=== PATIENT | female | born 1995 | race Caucasian/White ===

== ENCOUNTER 2018-02-02 02:16 | Emergency (ER) | payer SELFPAY ==
[~2018-02-02] VITALS: Ht 162.6 cm; Wt 59.0 kg
[2018-02-02] MEDS ORDERED: SODIUM CHLORIDE 0.9% 1,000 ML IV ONE (02:45)
[2018-02-02 03:53] LABS: BASOPHILS % 0.7 % (0.0-2.0); EOSINOPHILS % 0.2 % (0.0-5.0); HEMATOCRIT. 38.5 % (36.0-48.0); HEMOGLOBIN. 13.1 g/dL (12.0-16.0); LYMPHOCYTES % 22.4 % (20.0-50.0); MEAN CORPUSCULAR VOLUME 91.1 fL (81.0-99.0); MEAN PLATELET VOLUME 9.3 fl (7.4-10.4); NEUTROPHILS % 72.7 % (40.0-76.0); PLATELET 223 x1000/uL (130-400); RED BLOOD CELL COUNT 4.23 mill/uL (4.2-5.4); RED CELL DISTRIBUTION WIDTH 13.2 % (11.6-14.6)
[2018-02-02 03:58] LABS: CHLORIDE 106 mEq/L (98-107)
[2018-02-02 04:01] LABS: ETHANOL BLOOD 191 mg/dL
[2018-02-02 06:05] VITALS: BP 115/68
== END 2018-02-02 07:13 | disposition home or self-care (01) ==
LOC: ER 02:54 → EDBD 02:54 → ER 07:13
DX: F10.129 Alcohol abuse with intoxication, unspecified (principal); Y90.6 Blood alcohol level of 120-199 mg/100 ml
CPT/HCPCS: 36415; 80048; 85025; 96360; 99284; G0482; J7030; Z7610

== ENCOUNTER 2018-09-11 12:54 | Emergency (ER) | payer MEDICAID, OTHER ==
[~2018-09-11] VITALS: Ht 162.6 cm; Wt 61.0 kg
[2018-09-11] MEDS ORDERED: KETOROLAC 30MG/ML VIAL IM ONE (14:45)
[2018-09-11] MEDS ORDERED: DEXAMETHASONE 10 MG/ML VIAL IM ONE (14:45)
[2018-09-11 15:05] VITALS: BP 128/76
== END 2018-09-11 15:06 | disposition home or self-care (01) ==
LOC: ER 12:54
DX: J02.9 Acute pharyngitis, unspecified (principal)
CPT/HCPCS: 81025; 96372; 99283; J1100; J1885

== ENCOUNTER 2020-12-23 17:03 | Inpatient (IN) | payer MEDICAID ==
[~2020-12-23] VITALS: Ht 162.6 cm; Wt 85.3 kg
[2020-12-23] MEDS ORDERED: LABETALOL HCL 200MG TABLET PO NR (18:15)
[2020-12-23] MEDS: LACTATED RINGERS 1,000 ML IV SCH (18:30)
[2020-12-23] MEDS ORDERED: MAGNESIUM 20 G PREMIX (L & D) 500 ML IV SCH (19:15)
[2020-12-23] MEDS ORDERED: LABETALOL HCL 5MG/ML VIAL 20ML IV PRN ×5 (19:15→19:30)
[2020-12-23] MEDS ORDERED: MAGNESIUM 4 G PREMIX 100 ML IV NR (19:15)
[2020-12-23] MEDS ORDERED: RHO(D) IMMUNE GLOBULIN 300 MCG/SYR IM NR (19:30)
[2020-12-23] MEDS ORDERED: HYDRALAZINE 20MG/ML VIAL IV PRN (19:30)
[2020-12-23] MEDS ORDERED: DEXT 5%/LACTATED RINGERS 1,000 ML IV SCH (19:30)
[2020-12-23] MEDS ORDERED: MAGNESIUM 20 G PREMIX (L & D) 500 ML IV ONE (19:31)
[2020-12-23] MEDS: MAGNESIUM 20 G PREMIX (L & D) 500 ML IV SCH (19:50)
[2020-12-23] MEDS: BETAMETHASONE ACET/BETAMET 30 MG/5 ML VIAL IM SCH (19:53)
[2020-12-23 19:56] LABS: CHLORIDE 111 mEq/L (98-107)
[2020-12-23 19:59] LABS: BASOPHILS % 0.8 % (0.0-2.0); HEMATOCRIT. 34.9 % (36.0-48.0); HEMOGLOBIN. 12.2 g/dL (12.0-16.0); LYMPHOCYTES % 29.5 % (20.0-50.0); MEAN CORPUSCULAR HEMOGLOBIN 30.6 pg (28.0-32.0); MEAN CORPUSCULAR VOLUME 87.6 fL (81.0-99.0); MEAN PLATELET VOLUME 11.6 fl (7.4-10.4); MONOCYTES % 6.6 % (2.0-8.0); NEUTROPHILS % 62.1 % (40.0-76.0); PLATELET 206 x1000/uL (130-400); RED BLOOD CELL COUNT 3.98 mill/uL (4.2-5.4); RED CELL DISTRIBUTION WIDTH 13.3 % (11.6-14.6)
[2020-12-23 20:00] LABS: CLARITY URINE CLEAR (CLEAR); COLOR URINE DARK YELLOW (YELLOW); KETONES URINE NEGATIVE (NEGATIVE); LEUKOCYTE ESTERASE URINE TRACE (NEGATIVE); NITRITE URINE NEGATIVE (NEGATIVE); OCCULT BLOOD URINE TRACE (NEGATIVE); PROTEIN URINE 4+ (NEGATIVE); SPECIFIC GRAVITY URINE 1.024 (1.005-1.030); UROBILINOGEN URINE 0.2 E.U./dL (0.2-1.0)
[2020-12-23 20:07] LABS: INR 0.9; PARTIAL THROMBOPLASTIN TIME 25.2 sec (23.4-31.0); PROTHROMBIN TIME 9.7 sec (9.6-11.0)
[2020-12-23 20:47] LABS: *AMPHETAMINES SCREEN URINE NEGATIVE (NEGATIVE); *BARBITURATES SCREEN URINE NEGATIVE (NEGATIVE); *BENZODIAZEPINES SCREEN URINE NEGATIVE (NEGATIVE); *COCAINE SCREEN URINE NEGATIVE (NEGATIVE); CANNABINOID URINE SCREEN NEGATIVE (NEGATIVE); HEPATITIS B SURFACE ANTIGEN NEGATIVE; METHADONE URINE SCREEN NEGATIVE (NEGATIVE); OPIATES URINE SCREEN NEGATIVE (NEGATIVE); PHENCYCLIDINE URINE SCREEN NEGATIVE (NEGATIVE)
[2020-12-23] MEDS ORDERED: BETAMETHASONE ACET/BETAMET 30 MG/5 ML VIAL IM SCH (21:00)
[2020-12-23] MEDS ORDERED: FISH1CAP34 PO (23:40)
[2020-12-23] MEDS ORDERED: PREN-182 PO (23:40)
[2020-12-23] MEDS ORDERED: LABE300T3 PO (23:40)
[2020-12-24] MEDS ORDERED: MAGNESIUM 20 G PREMIX (L & D) 500 ML IV SCH
[2020-12-24] MEDS: ACETAMINOPHEN 325MG TABLET PO PRN ×2 (00:39→05:19)
[2020-12-24 01:09] LABS: BASOPHILS % 0.4 % (0.0-2.0); EOSINOPHILS % 0.3 % (0.0-5.0); HEMATOCRIT. 37.3 % (36.0-48.0); LYMPHOCYTES % 15.7 % (20.0-50.0); MEAN CORPUSCULAR HEMOGLOBIN 30.7 pg (28.0-32.0); MEAN CORPUSCULAR VOLUME 87.9 fL (81.0-99.0); MEAN PLATELET VOLUME 10.8 fl (7.4-10.4); MONOCYTES % 1.9 % (2.0-8.0); NEUTROPHILS % 81.7 % (40.0-76.0); PLATELET 220 x1000/uL (130-400); RED BLOOD CELL COUNT 4.25 mill/uL (4.2-5.4); RED CELL DISTRIBUTION WIDTH 13.3 % (11.6-14.6)
[2020-12-24 01:12] LABS: CHLORIDE 110 mEq/L (98-107)
[2020-12-24 01:17] LABS: CLARITY URINE CLEAR (CLEAR); COLOR URINE YELLOW (YELLOW); KETONES URINE 1+ (NEGATIVE); LEUKOCYTE ESTERASE URINE NEGATIVE (NEGATIVE); NITRITE URINE NEGATIVE (NEGATIVE); OCCULT BLOOD URINE TRACE (NEGATIVE); PH URINE 5.5 (4.5-8.0); PROTEIN URINE 4+ (NEGATIVE); SPECIFIC GRAVITY URINE 1.024 (1.005-1.030); UROBILINOGEN URINE 0.2 E.U./dL (0.2-1.0)
[2020-12-24 01:52] LABS: D-DIMER 1.39 mg/L FEU (<0.50); INR 0.8; PROTHROMBIN TIME 9.1 sec (9.6-11.0)
[2020-12-24] MEDS: MAGNESIUM 20 G PREMIX (L & D) 500 ML IV SCH (06:06)
[2020-12-24] MEDS: LABETALOL HCL 200MG TABLET PO SCH ×2 (09:37→10:39)
[2020-12-24] MEDS: LACTATED RINGERS 1,000 ML IV SCH ×2 (09:54→21:24)
[2020-12-24] MEDS ORDERED: LABETALOL HCL 200MG TABLET PO SCH ×2 (18:00)
[2020-12-24] MEDS: LABETALOL HCL 100MG TABLET PO SCH (18:32)
[2020-12-24 19:37] LABS: BASOPHILS % 0.6 % (0.0-2.0); HEMATOCRIT. 35.6 % (36.0-48.0); HEMOGLOBIN. 12.2 g/dL (12.0-16.0); LYMPHOCYTES % 22.7 % (20.0-50.0); MEAN CORPUSCULAR HEMOGLOBIN 30.6 pg (28.0-32.0); MEAN CORPUSCULAR VOLUME 89.5 fL (81.0-99.0); MEAN PLATELET VOLUME 11.2 fl (7.4-10.4); MONOCYTES % 6.2 % (2.0-8.0); NEUTROPHILS % 70.5 % (40.0-76.0); PLATELET 240 x1000/uL (130-400); RED BLOOD CELL COUNT 3.98 mill/uL (4.2-5.4); RED CELL DISTRIBUTION WIDTH 13.7 % (11.6-14.6)
[2020-12-24 19:42] LABS: CHLORIDE 106 mEq/L (98-107); CLARITY URINE CLEAR (CLEAR); COLOR URINE YELLOW (YELLOW); KETONES URINE 1+ (NEGATIVE); LEUKOCYTE ESTERASE URINE NEGATIVE (NEGATIVE); NITRITE URINE NEGATIVE (NEGATIVE); OCCULT BLOOD URINE 1+ (NEGATIVE); PROTEIN URINE 3+ (NEGATIVE); UROBILINOGEN URINE 0.2 E.U./dL (0.2-1.0)
[2020-12-24 19:51] LABS: D-DIMER 1.16 mg/L FEU (<0.50); INR 0.8; PARTIAL THROMBOPLASTIN TIME 23.7 sec (23.4-31.0); PROTHROMBIN TIME 9.2 sec (9.6-11.0)
[2020-12-24] MEDS: BETAMETHASONE ACET/BETAMET 30 MG/5 ML VIAL IM SCH (20:12)
[2020-12-25] VITALS (9 sets, daily range): BP systolic 141–196; BP diastolic 89–139
[2020-12-25] MEDS: LABETALOL HCL 100MG TABLET PO SCH ×2 (02:00→10:03)
[2020-12-25] MEDS: MAGNESIUM 20 G PREMIX (L & D) 500 ML IV SCH ×2 (02:16→23:13)
[2020-12-25] MEDS: ACETAMINOPHEN 325MG TABLET PO PRN (02:21)
[2020-12-25] MEDS: LACTATED RINGERS 1,000 ML IV SCH (06:49)
[2020-12-25] MEDS ORDERED: OXYTOCIN 10 UNITS/ML 1ML ONE (12:06)
[2020-12-25] MEDS ORDERED: EPHEDRINE SULFATE 50MG/ML VIAL ONE (12:06)
[2020-12-25] MEDS ORDERED: FENTANYL CITRATE/PF 50MCG/ML 2ML VIAL ONE (12:06)
[2020-12-25] MEDS ORDERED: ONDANSETRON HCL 4MG/2ML INJ ONE ×2 (12:06→12:56)
[2020-12-25] MEDS ORDERED: MORPHINE SULFATE/PF 1MG/ML 10ML AMP ONE (12:06)
[2020-12-25] MEDS ORDERED: CEFAZOLIN SODIUM 1000MG/VIAL ONE ×2 (12:06→12:56)
[2020-12-25] MEDS ORDERED: SODIUM CHLORIDE 0.9% 10ML VIAL ONE (12:08)
[2020-12-25] MEDS ORDERED: GLYCOPYRROLATE 0.2 MG/ML 2ML VIAL ONE (13:10)
[2020-12-25] MEDS ORDERED: KETOROLAC 60MG/2ML VIAL IM ONE (13:28)
[2020-12-25] MEDS ORDERED: DIPHENHYDRAMINE 50MG/ML VIAL ONE (13:28)
[2020-12-25] MEDS ORDERED: NALOXONE HCL 0.4 MG/ML 1ML VIAL IV PRN (13:30)
[2020-12-25] MEDS ORDERED: DIPHENHYDRAMINE 50MG/ML VIAL IV PRN (13:30)
[2020-12-25] MEDS ORDERED: BUTORPHANOL TARTRATE 2 MG/ML VIAL IV PRN (13:30)
[2020-12-25] MEDS ORDERED: HEMORRHOIDAL SUPP PR PRN (14:30)
[2020-12-25] MEDS ORDERED: IBUPROFEN 400MG TABLET PO PRN (14:30)
[2020-12-25] MEDS ORDERED: DEXT 5%/LR + PITOCIN 20UNITS/L 1,000 ML IV SCH (14:30)
[2020-12-25] MEDS ORDERED: BISACODYL 10MG SUPP PR PRN (14:30)
[2020-12-25] MEDS ORDERED: ONDANSETRON HCL 4MG/2ML INJ IV PRN (14:30)
[2020-12-25] MEDS ORDERED: HYDROCODONE/ACETAMINOPHEN 5/325MG TABLET PO PRN (14:30)
[2020-12-25] MEDS ORDERED: LANOLIN OINT 7GM TUBE TOP PRN (14:30)
[2020-12-25 17:04] LABS: BASOPHILS % 0.1 % (0.0-2.0); HEMATOCRIT. 36.7 % (36.0-48.0); HEMOGLOBIN. 12.7 g/dL (12.0-16.0); LYMPHOCYTES % 14.9 % (20.0-50.0); MEAN CORPUSCULAR HEMOGLOBIN 30.7 pg (28.0-32.0); MEAN CORPUSCULAR VOLUME 88.8 fL (81.0-99.0); MEAN PLATELET VOLUME 10.7 fl (7.4-10.4); MONOCYTES % 3.1 % (2.0-8.0); NEUTROPHILS % 81.9 % (40.0-76.0); PLATELET 235 x1000/uL (130-400); RED BLOOD CELL COUNT 4.14 mill/uL (4.2-5.4); RED CELL DISTRIBUTION WIDTH 13.3 % (11.6-14.6)
[2020-12-25] MEDS: LABETALOL HCL 200MG TABLET PO SCH (17:21)
[2020-12-25] MEDS: KETOROLAC 30MG/ML VIAL IV SCH ×2 (17:22→23:11)
[2020-12-26] VITALS (12 sets, daily range): BP systolic 151–169; BP diastolic 95–107
[2020-12-26] MEDS: LABETALOL HCL 200MG TABLET PO SCH ×3 (01:12→17:18)
[2020-12-26] MEDS ORDERED: KETOROLAC 30MG/ML VIAL IV SCH (05:15)
[2020-12-26 06:48] LABS: HEMATOCRIT 35.8 % (36.0-48.0)
[2020-12-26] MEDS: IBUPROFEN 800MG TABLET PO PRN ×2 (09:01→17:18)
[2020-12-26] MEDS: SIMETHICONE 80MG TABLET CHEW PO SCH ×2 (09:01→17:19)
[2020-12-26] MEDS: PRENATAL VIT/FE FUMARATE/FA TABLET PO SCH (09:01)
[2020-12-26] MEDS: DOCUSATE SODIUM 100MG CAPSULE PO SCH (09:02)
[2020-12-26 15:30] LABS: HEMATOCRIT 33.3 % (36.0-48.0); HEMOGLOBIN 11.5 g/dL (12.0-16.0); MEAN CORPUSCULAR HEMOGLOBIN 30.6 pg (28.0-32.0); MEAN CORPUSCULAR VOLUME 88.5 fL (81.0-99.0); PLATELET 211 x1000/uL (130-400); RED BLOOD CELL COUNT 3.76 mill/uL (4.2-5.4); RED CELL DISTRIBUTION WIDTH 13.7 % (11.6-14.6)
[2020-12-26 15:56] LABS: CHLORIDE 108 mEq/L (98-107)
[2020-12-26] MEDS: FERROUS SULFATE 325MG TABLET PO SCH (17:18)
[2020-12-27 01:31] VITALS: BP 195/104
[2020-12-27] MEDS: LABETALOL HCL 200MG TABLET PO SCH ×3 (01:31→17:19)
[2020-12-27] MEDS: NIFEDIPINE 10MG CAPSULE PO SCH (02:11)
[2020-12-27 03:45] VITALS: BP 120/71
[2020-12-27 07:55] VITALS: BP 153/98
[2020-12-27] MEDS: SIMETHICONE 80MG TABLET CHEW PO SCH ×4 (09:03→20:46)
[2020-12-27] MEDS: PRENATAL VIT/FE FUMARATE/FA TABLET PO SCH (09:04)
[2020-12-27] MEDS: FERROUS SULFATE 325MG TABLET PO SCH ×3 (09:05→17:17)
[2020-12-27 12:00] VITALS: BP 139/79
[2020-12-27 16:05] VITALS: BP 159/98
[2020-12-27] MEDS: IBUPROFEN 800MG TABLET PO PRN (17:17)
[2020-12-27 20:00] VITALS: BP 156/94
[2020-12-27] MEDS: DOCUSATE SODIUM 100MG CAPSULE PO SCH (20:46)
[2020-12-28] VITALS (10 sets, daily range): BP systolic 113–195; BP diastolic 59–122
[2020-12-28] MEDS: LABETALOL HCL 200MG TABLET PO SCH (02:18)
[2020-12-28] MEDS: IBUPROFEN 800MG TABLET PO PRN ×3 (02:28→16:17)
[2020-12-28] MEDS: NIFEDIPINE 10MG CAPSULE PO SCH (06:14)
[2020-12-28] MEDS ORDERED: LABETALOL HCL 200MG TABLET PO SCH (07:00)
[2020-12-28] MEDS: PRENATAL VIT/FE FUMARATE/FA TABLET PO SCH (10:40)
[2020-12-28] MEDS: FERROUS SULFATE 325MG TABLET PO SCH ×2 (10:41→16:16)
[2020-12-28] MEDS: NIFEDIPINE XL 30MG TAB PO SCH ×2 (16:17→21:20)
[2020-12-28] MEDS: SIMETHICONE 80MG TABLET CHEW PO SCH (20:59)
[2020-12-28] MEDS: DOCUSATE SODIUM 100MG CAPSULE PO SCH (20:59)
[2020-12-29 04:10] VITALS: BP 158/101
[2020-12-29] MEDS: IBUPROFEN 800MG TABLET PO PRN ×3 (04:18→21:18)
[2020-12-29 07:30] VITALS: BP 151/92
[2020-12-29 08:01] LABS: BASOPHILS % 0.3 % (0.0-2.0); EOSINOPHILS % 2.2 % (0.0-5.0); HEMATOCRIT. 37.1 % (36.0-48.0); HEMOGLOBIN. 12.5 g/dL (12.0-16.0); MEAN CORPUSCULAR HEMOGLOBIN 30.4 pg (28.0-32.0); MEAN PLATELET VOLUME 9.4 fl (7.4-10.4); MONOCYTES % 6.3 % (2.0-8.0); NEUTROPHILS % 64.2 % (40.0-76.0); PLATELET 228 x1000/uL (130-400); RED BLOOD CELL COUNT 4.13 mill/uL (4.2-5.4); RED CELL DISTRIBUTION WIDTH 13.9 % (11.6-14.6)
[2020-12-29 08:06] LABS: CHLORIDE 108 mEq/L (98-107)
[2020-12-29] MEDS: PRENATAL VIT/FE FUMARATE/FA TABLET PO SCH (08:59)
[2020-12-29] MEDS: NIFEDIPINE XL 30MG TAB PO SCH ×2 (08:59→21:11)
[2020-12-29] MEDS: FERROUS SULFATE 325MG TABLET PO SCH (08:59)
[2020-12-29 19:35] VITALS: BP 139/98
[2020-12-29 21:10] VITALS: BP 152/111
[2020-12-29] MEDS: SIMETHICONE 80MG TABLET CHEW PO SCH (21:14)
[2020-12-29] MEDS: DOCUSATE SODIUM 100MG CAPSULE PO SCH (21:15)
[2020-12-29 23:13] VITALS: BP 154/109
[2020-12-30 00:19] VITALS: BP 140/99
[2020-12-30 04:00] VITALS: BP 142/98
[2020-12-30] MEDS ORDERED: NALOXONE HCL 0.4MG/ML VIAL IV PRN (09:30)
[2020-12-30] MEDS ORDERED: NIFEDIPINE XL 60MG TAB PO NR (09:30)
[2020-12-30] MEDS: PRENATAL VIT/FE FUMARATE/FA TABLET PO SCH (09:41)
[2020-12-30] MEDS: SIMETHICONE 80MG TABLET CHEW PO SCH (09:42)
[2020-12-30] MEDS: FERROUS SULFATE 325MG TABLET PO SCH (09:42)
[2020-12-30 14:45] VITALS: BP 121/71
[2020-12-30] MEDS ORDERED: NIFE-33 PO (15:18)
[2020-12-30] MEDS ORDERED: IBUP-2030 PO (15:18)
[2020-12-31] MEDS ORDERED: NIFEDIPINE XL 30MG TAB PO SCH (09:00)
== END 2020-12-30 16:00 | disposition home or self-care (01) | DRG 540 ==
LOC: OBSVTOIN 17:03 → 8 EST LDRP 17:03 → 8EST 12-25 16:05 → UNDODISIN 12-29 12:55
PROVIDERS: ADMIT Obstetrics & Gynecology; ATTEND Obstetrics & Gynecology
PROC: 10D00Z1 Extraction of Products of Conception, Low, Open Approach (ICD-10-PCS; principal; 2020-12-25)
DX: O60.14X0 Preterm labor third trimester with preterm delivery third trimester, not applicable or unspecified (principal); D62 Acute posthemorrhagic anemia; O14.14 Severe pre-eclampsia complicating childbirth; O99.324 Drug use complicating childbirth; Z37.0 Single live birth; F16.10 Hallucinogen abuse, uncomplicated; O32.2XX0 Maternal care for transverse and oblique lie, not applicable or unspecified; Z3A.33 33 weeks gestation of pregnancy; O99.02 Anemia complicating childbirth; O13.4 Gestational [pregnancy-induced] hypertension without significant proteinuria, complicating childbirth; Z20.822 Contact with and (suspected) exposure to COVID-19
CPT/HCPCS: 36415; 76805; 76818; 80053; 80305; 80359; 81003; 83735; 84550; 85014; 85018; 85025; 85027; 85049; 85379; 85384; 86592; 86644; 86703; 86762; 86850; 86900; 87340; 87426; 88304; 88307; 99281; G0378; J0360; J0690; J0702; J1200; J1885; J2274; J2405; J2590; J3010; J3475; J3490; J7120